=== PATIENT | female | born 1975 | race African-American/Black ===

== ENCOUNTER 2018-05-06 11:17 | Emergency (ER) | payer MEDICAID ==
[~2018-05-06] VITALS: Ht 167.6 cm; Wt 49.9 kg
[2018-05-06 11:20] VITALS: BP 111/56
--- NOTE | 2018-05-06 11:24 | NUR ---
1117 PT BIBA ALS TO BED 5
--- NOTE | 2018-05-06 11:28 | NUR ---
42/F BIBA FROM A STORE WITH C/O NEAR SYNCOPAL EPISODE WITH STERNAL PAIN RADIATING TO LEFT SHOULDERX TODAY. PT REPORT HAS HX OF HTN, DM BUT DOES NOT TAKE ANY MED. DENIES N/V/D; SKIN IS PINK/WARM/DRY; AAOX4 WITH EVEN AND STEADY GAIT; LUNGS CLEAR BL. PT DENIES ANY FEVER, SOB, OR COUGH AT THIS TIME; PATIENT STATES PAIN OF 8/10 AT THIS TIME. PATIENT POSITIONED FOR COMFORT; HOB ELEVATED; BEDRAILS UP X2; BED DOWN. ER MADE AWARE OF PT STATUS. Addendum: 05/06/18 at 1208 by [email or web address] PT REPORTED FELL X 1WK %& PAIN TO L KNEE.
[2018-05-06 11:46] LABS: HEMOGLOBIN 7.8 g/dL (12.0-16.0); MONOCYTES # (AUTO) 0.6 K/uL (0.8-1.0); WHITE BLOOD COUNT (AUTO) 7.2 K/uL (4.8-10.8)
[2018-05-06 12:10] LABS: ALBUMIN 3.5 g/dL (3.4-5.0); ANION GAP 9.7 (8-16); BASOPHILS % (AUTO) 0.6 % (0.0-2.0); CARBON DIOXIDE 24.2 mmol/L (21-32); CREATININE 0.9 mg/dL (0.6-1.3); EOSINOPHILS # (AUTO) 0.1 K/uL (0-0.4); EOSINOPHILS % (AUTO) 0.9 % (0.0-4.0); LYMPHOCYTES % (AUTO) 13.6 % (20.5-51.1); MEAN CORPUSCULAR HEMOGLOBIN 20 pg (27-31); MEAN CORPUSCULAR HGB CONC 31 g/dL (33-37); MEAN CORPUSCULAR VOLUME 65.7 fL (80-94); MONOCYTES % (AUTO) 7.8 % (1.7-9.3); NEUTROPHILS # (AUTO) 5.5 K/uL (1.8-7.7); NEUTROPHILS % (AUTO) 77.1 % (42.2-75.2); PLATELET COUNT (AUTO) 342 K/uL (140-450); POTASSIUM 3.9 mmol/L (3.5-5.1); RED CELL DISTRIBUTION WIDTH 19.6 % (11.6-13.7); TOTAL BILIRUBIN 0.9 mg/dL (0.0-1.0)
[2018-05-06 12:13] LABS: HEMATOCRIT 25.8 % (36-48)
[2018-05-06 14:12] VITALS: BP 111/56
--- NOTE | 2018-05-06 14:13 | NUR ---
Patient discharged with v/s stable. Written and verbal after care instructions given and explained. Patient alert, oriented and verbalized understanding of instructions. Ambulatory with steady gait. All questions addressed prior to discharge. ID band removed. Patient advised to follow up with PMD. Rx of MOTRIN AND ASPIRIN given. Patient educated on indication of medication including possible reaction and side effects. Opportunity to ask questions provided and answered.
== END 2018-05-06 14:13 | disposition home or self-care (01) ==
LOC: MED 11:17
DX: R07.89 Other chest pain (principal); R55 Syncope and collapse; R94.31 Abnormal electrocardiogram [ECG] [EKG]; E11.9 Type 2 diabetes mellitus without complications; I10 Essential (primary) hypertension
CPT/HCPCS: 36415; 71045; 80053; 81002; 81025; 84484; 85025; 93005; 99285; Q0092

== ENCOUNTER 2019-07-06 22:36 | Inpatient (IN) | payer MEDICAID ==
[~2019-07-06] VITALS: Ht 160 cm; Wt 45.4 kg
[2019-07-06 21:38] VITALS: BP 139/89
[2019-07-06 22:36] VITALS: BP 133/82
[2019-07-06 22:54] LABS: BASOPHILS % (AUTO) 0.5 % (0.0-2.0); EOSINOPHILS # (AUTO) 0.1 K/uL (0-0.4); EOSINOPHILS % (AUTO) 1.3 % (0.0-4.0); HEMATOCRIT 29.7 % (36-48); HEMOGLOBIN 9.2 g/dL (12.0-16.0); LYMPHOCYTES # (AUTO) 1.7 K/uL (2.5-16.5); LYMPHOCYTES % (AUTO) 17.7 % (20.5-51.1); MEAN CORPUSCULAR HEMOGLOBIN 22 pg (27-31); MEAN CORPUSCULAR HGB CONC 31 g/dL (33-37); MEAN CORPUSCULAR VOLUME 72.4 fL (80-94); MONOCYTES # (AUTO) 0.9 K/uL (0.8-1.0); MONOCYTES % (AUTO) 9.7 % (1.7-9.3); NEUTROPHILS # (AUTO) 6.7 K/uL (1.8-7.7); NEUTROPHILS % (AUTO) 70.8 % (42.2-75.2); PLATELET COUNT (AUTO) 382 K/uL (140-450); RED CELL DISTRIBUTION WIDTH 18.4 % (11.6-13.7); WHITE BLOOD COUNT (AUTO) 9.5 K/uL (4.8-10.8)
[2019-07-06 23:01] LABS: CARBON DIOXIDE 27.4 mmol/L (21-32); CREATININE 0.6 mg/dL (0.6-1.3); POTASSIUM 3.4 mmol/L (3.5-5.1)
[2019-07-06] MEDS ORDERED: ACETAMINOPHEN 325 MG TAB PO ONE (23:15)
--- NOTE | 2019-07-06 23:20 | NUR ---
FAMILY MEMEBER CALLED CONCERNED ABOUT PT. SPOKE TO PT UNCLE, ADRIEL GARCIA, REGARDING PT MEDICAL HX. PT UNCLE STATED THAT SHE CALLED HIS CONCERNED AND THAT SHE WAS IN LABOR WITH A BABY. PT HAS PSYCH HISTORY OF BIPOLAR AND SCHIZOPHRENIA AND HAS BEEN UNSTABLE. UNCLE STATED SHE "CRIES HERBERT, SHE IS HOMELESS AND LEAVES FOR MONTHS AND THEN CALLS WHEN SHE NEEDS MONEY". PT UNCLE DENIES SEEING PT FOR MONTHS AND IS UNSURE IF SHE IS . PER UNCLE, SHE HAS DONE THIS BEFORE AND HAS DELIVERED A BABY. CONTACT INFORMATION IS .
--- NOTE | 2019-07-06 23:24 | NUR ---
PER TELEPSYCH REQUEST INITIATED
--- NOTE | 2019-07-06 23:25 | NUR ---
PT BIBA C/O VAG BLEEDING X TODAY. PT STATED SHE WAS 9 MONTHS PREG SO SHE WAS TRASNFERRED TO L&D. L&D CALLED AND CONFIRMED SHE WAS NOT PREG AND WAS TRANSFERRED BACK TO ER. PT IS IN BED ONE AND SAID SHE IS STILL PREG FOR 9 MONTHS AND SAID THEY DID AN US AND STATED "I HAVE 6 BABIES IN THERE." SHE ALSO SAID "IM IN LABOR AND IM GETTING A C/S TONIGHT AT THIS HOSPITAL" SHE ALSO SAID "KARTIK TRAVEL TO DIFFERENT HOSPITAL AND STORES AND I AUDIT THEM." SHE SAYS SHE LIVES WITH 2 OF HER BEST FRIENDS IN [place]. SHE ALSO SAID THIS IS HER 5TH PREG AND HAS 4 CHILDREN LIVING. VSS. a &O X 2 (PERSON, PLACE). WHEN ASKED QUESTIONS SHE ANSWERS INAPPROPRIATELY. CLEAR SPEECH. NO DISTRESS NOTED. PMH: ASTHMA,DM,HTN, SCHIZO, BIPOLAR NKA.
--- NOTE | 2019-07-07 00:18 | NUR ---
TELEPSYCH SAID TO ADMIT PT. RAFAEL AWARE.
--- NOTE | 2019-07-07 00:51 | NUR ---
TRIED TO GET URINE SAMPLE FROM PT. PT IS UNABLE TO GET OUT OF BED D/T THE FACT THAT SHE IS "IN LABOR," TRIED OFFERING BEDPAN AND SAID SHE CANT GO AT THIS TIME. WILL LET ERMD KNOW.
--- NOTE | 2019-07-07 00:53 | NUR ---
RECEIVED FAX FROM [facility], FROM MD SOSA. PLAN OF CARE FROM PSYCH MD SOSA IS: PT IS LOW RISK FOR DANGER TO SELF AND OTHERS, HIGH RISK FOR GD, RECOMMEND PLACING 5150 INVOL PSYCH HOLD, MED CLEARANCE BY ERMD, AND INPATIENT PSYCH ADMISSION. REASON FOR COMMITMENT IS D/T GRAVELY DISABLED.
--- NOTE | 2019-07-07 01:04 | NUR ---
SPOKE TO INSIDE BARREL LATHE OPERATOR [phone] FROM [facility] TO ASK TO HAVE AN OFFICER TO [facility] FOR A 5150 HOLD.
--- NOTE | 2019-07-07 01:10 | NUR ---
[place] OFFICER VIN ARRIVED TO [facility] PT AT BEDSIDE TO PLACE A 5150 HOLD.
--- NOTE | 2019-07-07 01:18 | NUR ---
JACKIE,CHARGE NURSE AND MILLIKEN OFFICER VIN AT BEDSIDE EVAL PT.
--- NOTE | 2019-07-07 02:05 | NUR ---
urine collected by bedpan.
--- NOTE | 2019-07-07 02:10 | NUR ---
lab collected urine.
[2019-07-07 02:18] LABS: APPEARANCE,URINE SL CLOUDY (CLEAR); BILIRUBIN,URINE 1+ (NEGATIVE); BLOOD, URINE 3+ (NEGATIVE); COLOR,URINE YELLOW (YELLOW); LEUKOCYTE ESTERASE ,URINE NEGATIVE (NEGATIVE); NITRITE, URINE NEGATIVE (NEGATIVE); UGLUCOSE NEGATIVE (NEGATIVE)
[2019-07-07 02:24] LABS: BARBITURATE, URINE NEG. ng/ml (NEG <=200); BENZODIAZEPINE, URINE NEG. ng/mL (NEG <=200); CANNABINOID, URINE NEG. ng/mL (NEG <=50); COCAINE, URINE NEG. ng/mL (NEG <=300); OPIATE, URINE NEG. ng/mL (NEG <=2000); PHENCYCLIDINE SCREEN,URINE NEG. ng/mL (NEG <=25)
--- NOTE | 2019-07-07 02:27 | NUR ---
lab at bedside.
[2019-07-07 02:51] LABS: RBC,URINE 11-20 (MOD) /HPF (0-5); TRICHOMONAS,URINE Rare /HPF (None Seen)
--- NOTE | 2019-07-07 04:25 | NUR ---
SPOKE TO KRISTA [facility] REGARDING PT. PER , PT HAS SCABIES AND POSSIBLE BED BUGS. PER KRISTA, PT IS NOT MEDICALLY CLEARED AND WILL NEED TO BE ADMITTED IN [facility] TILL SHE IS MEDICALLY CLEARED. PER KRISTA, " NO FACILITY WILL TAKE PT WITH SCABIES OR BED BUGS".RAFAEL MADE AWARE.
[2019-07-07] MEDS ORDERED: ONDANSETRON 4 MG/2 ML VIAL IM/IVP PRN (05:15)
[2019-07-07] MEDS ORDERED: DOCUSATE SODIUM 100 MG GELCAP PO PRN (05:15)
[2019-07-07] MEDS ORDERED: HYDROcodone/APAP 7.5/325 MG 1 TAB PO PRN (05:15)
--- NOTE | 2019-07-07 05:23 | NUR ---
pt awake, calm laying in gurney. even chest rise and fall. no distress noted.
[2019-07-07] MEDS: NACL 0.9% 1,000 ML IV SCH ×2 (06:00→22:40)
[2019-07-07 07:03] LABS: CHOL/HDL RATIO 1.9 (1-4.5); FREE T4 (FREE THYROXINE) 1.1 ng/dL (0.76-1.46); MAGNESIUM 1.6 mg/dL (1.8-2.4); PHOSPHORUS 3.9 mg/dL (2.5-4.9); THYROID STIMULATING HORMONE 1.3 uIU/mL (0.34-3.74)
--- NOTE | 2019-07-07 07:20 | NUR ---
RECEIVED REPORT FROM ER NURSE ANGÉLICA. PATIENT IS FULL CODE, NKA. WAS INFORMED PATIENT IS ON CONTACT PRECAUTIONS FOR SCABIES AND BED BUGS. PT IS 5150 D/T GRAVELY DISABLED. AAOX2, UNABLE TO AMBULATE. TOX SCREEN NEGATIVE. PATIENT IS CURRENTLY AWAKE IN BED, NO RESP DISTRESS. PT IS HOMELESS. IV TO LEFT AC 20G, SKIN IS INTACT. WILL BEGIN ADMISSION CARE PLAN PAPERWORK.
--- NOTE | 2019-07-07 07:30 | NUR ---
Patient will be admitted to care of [facility]. Admited to M/S. Will go to room 114A. Belongings list completed. Report to ALETHA BOWEN.
--- NOTE | 2019-07-07 08:35 | NUR ---
[facility] still monitoring Pt progress. Pt still pending medical clearance
--- NOTE | 2019-07-07 08:51 | NUR ---
PATIENT HAS BEEN SCREENED AND CATEGORIZED HIGH NUTRITION RISK. PATIENT WILL BE SEEN WITHIN 1-2 DAYS OF ADMISSION. 07/07/19-07/08/[address]
--- NOTE | 2019-07-07 09:00 | NUR ---
PATIENT HAS BEEN CONNECTED TO IV, NS INFUSING AT 60ML/HR. ADMINISTERED MAG AND KDURR PO FOR LOW LEVELS, PATIENT TOLERATED WELL.
[2019-07-07] MEDS ORDERED: POTASSIUM CHLORIDE 10 MEQ TABER PO SCH (10:00)
[2019-07-07] MEDS ORDERED: PERMETHRIN 5% 60 GM TUBE TP SCH (10:00)
[2019-07-07] MEDS ORDERED: MAGNESIUM OXIDE 400 MG TAB PO SCH (10:00)
--- NOTE | 2019-07-07 12:34 | NUR ---
[facility] still aware of patient. Per MD notes 07/07/2019 08:47, patient unstable for discharge/transfer. Will continue to monitor documentation.
[2019-07-07] MEDS: metroNIDAZOLE 500 MG/NS PREMIX 100 ML IV SCH ×2 (13:00→21:47)
--- NOTE | 2019-07-07 13:15 | NUR ---
APPLIED PERMETHRIN CREAM TO ENTIRE BODY. WILL ENDORSE TO CUTTER OUT RN AND OUTBOUND SALES PROFESSIONAL FOR CONTINUITY OF CARE.
--- NOTE | 2019-07-07 13:48 | NUR ---
DC PLANNING 43 YRS OLD FEMALE PATIENT WAS ADMITTED FROM ER WITH A DX OF ENCEPHALOPATHY, ANEMIA . PT IS HOMELESS.HAS A HX OF SCHIZOAFFECTIVE DISORDER AND BIPOLAR. PT IS ON HOLD 5150 FOR GRAVELY DISABLE . PSYCH CONSULT WITH DR YAO , IVF, AND PEDRO PRADO STARTED DC PLAN SS FOR HOMELESSNESS.CM TO FOLLOW.
--- NOTE | 2019-07-07 14:00 | NUR ---
ADMINISTERED FLAGYL INFUSION IVPB. ADMINISTERED TYLENOL 650MG FOR GENERALIZED PAIN
[2019-07-07] MEDS: ACETAMINOPHEN 325 MG TAB PO PRN ×2 (14:14→21:28)
[2019-07-07 16:00] VITALS: BP 116/75
--- NOTE | 2019-07-07 16:51 | NUR ---
S/W bedside nurse Ludwin, patient not medically cleared yet. States in the am, patient should be cleared.
[2019-07-07] MEDS: FERROUS SULFATE 325 MG TABEC PO SCH (17:24)
[2019-07-07] MEDS: SODIUM FERRIC GLUCONATE 125 MG in NACL 0.9% 100 ML IV SCH (17:24)
--- NOTE | 2019-07-07 17:26 | NUR ---
ADMINISTERED FERROUS SULFATE PO AND FERRLECIT.
--- NOTE | 2019-07-07 19:10 | NUR ---
RECD. RESTING IN BED, AWAKE, A/OX2-3, WITH ILLUSION THAT SHE IS . RESPIRATION EVEN AND UNLABORED. IV OF NS AT 60 ML/HR INFUSING LEFT AC G20. USES BEDPAN. HEAD COVERED WITH HEAD PROTECTOR, SUSPECTED SCABIES, LICE. NO ITCHINESS NOTED. JUST RELAXED IN BED. PLAN OF CARE FOR THE SHIFT DISCUSSED. JUST NODS HEAD. DENIES PAIN 0/10.
[2019-07-07 20:00] VITALS: BP 113/78
--- NOTE | 2019-07-07 20:00 | NUR ---
Patient's Plan of Care was discussed and reviewed with PROFESSIONAL SERVICES SPECIALIST: VIJI CAMPBELL.
--- NOTE | 2019-07-07 20:45 | NUR ---
Change of shift report, will continue to monitor notes and plan of continuity of care
--- NOTE | 2019-07-07 22:00 | NUR ---
AWAKE, WATCHING TV.
--- NOTE | 2019-07-08 | NUR ---
SLEEPING COMFORTABLY IN BED.
--- NOTE | 2019-07-08 05:10 | NUR ---
Monitoring patient notes, aware patient is still not medically cleared till AM Addendum: 07/08/19 at 1151 by Kimmy Shields [place] [facility] [phone] NOTIFIED THAT PT IS MEDICALLY CLEAR FOR TRANSFER TO INPATIENT PSYCH FACILITY FAXED THE ORDER TO [phone]
--- NOTE | 2019-07-08 05:30 | NUR ---
ABLE TO SLEPT WELL. NO COMPLAINT OF PAIN AT THIS TIME 0.
[2019-07-08] MEDS: metroNIDAZOLE 500 MG/NS PREMIX 100 ML IV SCH ×3 (06:01→20:26)
--- NOTE | 2019-07-08 07:00 | NUR ---
REFUSED TO BE BATH. WANTS AFTER BREAKFAST.
--- NOTE | 2019-07-08 07:22 | NUR ---
RECEIVED BEDSIDE REPORT FROM VICE PRESIDENT COMPLIANCE NURSE, PT IS AWAKE, COOPERATIVE, BUT SPEECH IS NOTED TO BE SOMEWHAT SLOW. SKIN INTACT, ON ROOM AIR. PT IS ON CONTACT ISOLATION FOR POSSIBLE SCABIES/LICE. IV SITE L AC 20 G, INFUSING NS 60 ML/HR. CALL LIGHT IS WITHIN REACH. WILL CONTINUE TO MONITOR.
--- NOTE | 2019-07-08 07:30 | NUR ---
CONDITION REMAIN STABLE. ENDORSED TO SHIFT NURSE FOR CONTINUITY OF CARE.
[2019-07-08 07:57] LABS: BASOPHILS % (AUTO) 0.6 % (0.0-2.0); EOSINOPHILS # (AUTO) 0.2 K/uL (0-0.4); EOSINOPHILS % (AUTO) 2.6 % (0.0-4.0); HEMOGLOBIN 8.5 g/dL (12.0-16.0); LYMPHOCYTES # (AUTO) 0.9 K/uL (2.5-16.5); LYMPHOCYTES % (AUTO) 12.3 % (20.5-51.1); MEAN CORPUSCULAR HEMOGLOBIN 23 pg (27-31); MEAN CORPUSCULAR HGB CONC 31 g/dL (33-37); MEAN CORPUSCULAR VOLUME 73.1 fL (80-94); MONOCYTES # (AUTO) 0.4 K/uL (0.8-1.0); NEUTROPHILS # (AUTO) 5.6 K/uL (1.8-7.7); NEUTROPHILS % (AUTO) 79.5 % (42.2-75.2); PLATELET COUNT (AUTO) 359 K/uL (140-450); RED CELL DISTRIBUTION WIDTH 18.6 % (11.6-13.7); WHITE BLOOD COUNT (AUTO) 7.1 K/uL (4.8-10.8)
[2019-07-08 08:00] VITALS: BP 120/70
[2019-07-08 08:08] LABS: MAGNESIUM 1.9 mg/dL (1.8-2.4); PHOSPHORUS 3.1 mg/dL (2.5-4.9)
[2019-07-08 08:10] LABS: ANION GAP 14.2 (8-16); CARBON DIOXIDE 24.5 mmol/L (21-32); CREATININE 0.6 mg/dL (0.6-1.3); POTASSIUM 3.7 mmol/L (3.5-5.1)
[2019-07-08 08:31] LABS: T4 (THYROXINE) 7.3 ug/dL (4.5-12.0)
--- NOTE | 2019-07-08 09:02 | NUR ---
TALKED TO ZOFIA OCHOA ABOUT GIVING STAND-BY ASSISTANCE TO PT WHILE SHE TAKES A SHOWER, LABORER ROAD SAID THAT PT TOLD HER THAT SHE FEELS LIKE SHE IS UNABLE TO WALK/STAND BECAUSE OF HER "BROKEN LEG", AND THEREFORE UNABLE TO TAKE A SHOWER. ZOFIA STATES SHE FEELS UNSAFE TO PROVIDE STAND-BY ASSISTANCE TO PT IN CASE OF A FALL.
--- NOTE | 2019-07-08 10:02 | NUR ---
PATIENT HAS BEEN SCREENED AND CATEGORIZED MODERATE NUTRITION RISK. PATIENT WILL BE SEEN WITHIN 3-5 DAYS OF ADMISSION. 07/10/19 07/12/[address]
[2019-07-08] MEDS: FERROUS SULFATE 325 MG TABEC PO SCH ×2 (10:17→16:45)
--- NOTE | 2019-07-08 10:19 | NUR ---
SCHEDULED IRON ADMINISTERED, PT TOLERATED WELL. PT KEEPS STATING THAT SHE IS AND THAT SHE HAS A "10 O'CLOCK APPOINTMENT FOR A ". I REMINDED PT THAT SEVERAL TESTS WERE DONE THAT CONFIRMED SHE IS NOT . PT STILL INSISTS THAT SHE IS 9 MONTHS AND IS GOING INTO LABOR. WILL CONTINUE TO MONITOR.
[2019-07-08] MEDS ORDERED: risperiDONE 1 MG TAB PO SCH ×2 (11:38→21:00)
--- NOTE | 2019-07-08 11:48 | NUR ---
PT WAS ENDORSED TO SAROJ FOR CONTINUITY OF CARE.
--- NOTE | 2019-07-08 11:49 | NUR ---
RECEIVED PATIENT FROM ALETHA VYAS. PATIENT IS SITTING IN BED AT THIS TIME. NO DISTRESS NOTED. RESPIRATIONS EVEN AND UNLABORED, ON ROOM AIR. PATIENT STATED SHE IS HAVING CONTRACTIONS AND THAT SHE IS 10 CM DILATED. PATIENT IS NOT . SKIN INTACT. IV ON LEFT AC 20G RUNNING 0.9% AT 60 ML/HER. IV PATENT AND INTACT. PATENT IS CONTACT ISOLATION FOR POSSIBLE SCABIES AND LICE. BED IN LOW POSITION. CALL LIGHT WITHIN REACH.
--- NOTE | 2019-07-08 12:17 | NUR ---
Received call from [facility] stating patient is medically cleared. Waiting for MD notes stating patient is medically cleared before seeking placement
--- NOTE | 2019-07-08 12:21 | NUR ---
GIVEN FLAGYL VIA IVPB AND RISPERIDONE PO. EXPLAINED TO PATIENT INDICATIONS AND SIDE EFFECTS. PATIENT TOLERATED WELL. WILL CONTINUE TO MONITOR. BED IN LOW POSITION. CALL LIGHT WITHIN REACH.
--- NOTE | 2019-07-08 13:20 | NUR ---
PATIENT IS RESTING AT THIS TIME. DENIES PAIN. NO DISTRESS NOTED. WILL CONTINUE TO MONITOR. BED IN LOW POSITION. CALL LIGHT WITHIN REACH.
--- NOTE | 2019-07-08 13:53 | NUR ---
Called the following facilities: [facility] for [facility] Sonido packet fax for transfer center [facility] s/w Walter packet fax for review [facility] s/w Clara packet fax for review
--- NOTE | 2019-07-08 14:41 | NUR ---
Green Marketing Analyst Note: SW attempted to complete assessment with patient. Patient refused to complete screening. SW will follow up as needed.
--- NOTE | 2019-07-08 15:00 | NUR ---
RECEIVED A CALL FROM MT FROM [facility] AND SAID THAT PATIENT CANNOT BE ADMITTED IF SCABIES IS NOT R/O YET.
--- NOTE | 2019-07-08 15:05 | NUR ---
SPOKE TO DR. HODGE REGARDING PATIENT SCABIES STATUS. DR. HODGE SAID THAT PATIENT HAS BEEN TREATED FOR SCABIES AND PATIENT HAS NO LESIONS PRESENT. CONTACT ISOLATION IS STILL IN PLACE.
[2019-07-08] MEDS: NACL 0.9% 1,000 ML IV SCH (15:20)
--- NOTE | 2019-07-08 15:43 | NUR ---
07/08/19 RD INITIAL ASSESSMENT COMPLETED PLEASE REFER TO NUTRITION ASSESSMENT UNDER CARE ACTIVITY FOR ESTIMATED NUTRITIONAL NEEDS. 1. CONTINUE REGULAR DIET TOLERATED 2. RECOMMEND ENSURE BID 3. RECOMMEND VITAMIN C 500 MG BID 4. EDUCATION ON IRON INTAKE WAS PROVIDED 5. RD TO FOLLOW-UP 3-5 DAYS, MODERATE RISK SHANNEN MEDINA RD REVIEWED BY MOO MCDERMOTT RD
--- NOTE | 2019-07-08 15:57 | NUR ---
Left vm with [facility] to call back Call Center
[2019-07-08 16:00] VITALS: BP 114/71
--- NOTE | 2019-07-08 16:06 | NUR ---
SPOKE TO ESPINOZA FROM [facility] ABOUT PATIENT BEING CLEARED OF SCABIES. ESPINOZA ASKED FOR THE DOCTOR TO DOCUMENT THAT PATIENT HAS BEEN CLEARED FOR SCABIES. DOCTOR JASON IS AWARE.
[2019-07-08] MEDS: SODIUM FERRIC GLUCONATE 125 MG in NACL 0.9% 100 ML IV SCH (16:36)
--- NOTE | 2019-07-08 17:58 | NUR ---
Fax documentation to [facility] of medical clearance for scabies. S/W Dao
--- NOTE | 2019-07-08 18:37 | NUR ---
PATIENT IS RESTING AT THIS TIME, ON HER PHONE. PATIENT DENIES ANY PAIN. WILL CONTINUE TO MONITOR.
--- NOTE | 2019-07-08 19:20 | NUR ---
ENDORSED PATIENT TO EMERY WHEEL MOLDER NURSE, AZAM. PATIENT IS IN STABLE CONDITION.
--- NOTE | 2019-07-08 19:21 | NUR ---
REPORT RECEIVED FROM AM NURSE AT BEDSIDE. PT IN STABLE CONDITION. AAOX2-3. INTRODUCED SELF TO PT. BOARD UPDATED. NO COMPLAINTS OF PAIN. NO SOB. AFEBRILE. PT IS AMBULATORY. PT IS SLIGHTLY CONFUSED. IV SITE L AC 20G RUNNING NS@60ML/HR PATENT AND INTACT. SKIN WARM, DRY, AND INTACT WITH NO OPEN WOUNDS. PT HAS POSSIBLE SCABIES OR BEDBUG BITES. BED LOCKED IN LOW POSITION. CALL LARSEN WITHIN REACH. SAFETY PRECAUTION IN PLACE. ALL NEEDS MET AT THIS TIME.
--- NOTE | 2019-07-08 20:00 | NUR ---
CASE MANAGEMENT FROM [facility] CALLED TO ACCEPT PT FOR IP PSYCH. ACCEPTING DOCTOR WILL BE DR. WALDRON. ONCE TRANSPORT IS FIGURED OUT WE WILL CALL BACK WITH A TIME OF NURSES' ASSOCIATION COUNSELOR AND THEY WILL PROVIDE A BED.
--- NOTE | 2019-07-08 20:26 | NUR ---
RISPERDAL GIVEN PO. FLAGYL HUNG AND RUNNING. PT TOLERATING WELL.
--- NOTE | 2019-07-08 21:30 | NUR ---
SPOKE TO [facility]. SCHEDULED CHARTER BOAT CAPTAIN WILL BE [id number]. [facility] MADE AWARE.
[2019-07-08] MEDS ORDERED: RIS1 PO (21:54)
[2019-07-08] MEDS ORDERED: LACT10CA1 PO (21:54)
[2019-07-08] MEDS ORDERED: METR500T1 PO (21:54)
[2019-07-08] MEDS ORDERED: ASCO500T45 PO (21:54)
[2019-07-08] MEDS ORDERED: FER325 PO (21:54)
[2019-07-08 22:00] VITALS: BP 125/82
--- NOTE | 2019-07-08 22:40 | NUR ---
JONG PUTTING HER IN GURNEY AND TRANSFERRING PATIENT TO [facility].
--- NOTE | 2019-07-08 22:55 | NUR ---
CALLED [facility] AND SPOKE TO SHIRA. INFORMATION GIVEN ABOUT PT CONTACT FOR POSSIBILITY OF SCABIES, BEDBUGS, AND LICE. PT ALSO USES A CANE AND IS UNSTEADY WHILE WALKING. PT WILL BE ACCEPTED. BEING PUT ON GURNEY.
--- NOTE | 2019-07-08 23:00 | NUR ---
PT D/C TO [facility] THROUGH [facility].
[2019-07-09 08:09] LABS: CHLAMYDIA TRACHOMATIS AMP DNA Negative (Negative)
== END 2019-07-08 23:00 | DRG 663 ==
LOC: EDSTATUS 22:36 → MED 22:36 → MTU 07-07 05:15
PROVIDERS: ADMIT General Practice; ATTEND General Practice
DX: D50.9 Iron deficiency anemia, unspecified (principal); E46 Unspecified protein-calorie malnutrition; E83.42 Hypomagnesemia; F22 Delusional disorders; F25.9 Schizoaffective disorder, unspecified; E11.9 Type 2 diabetes mellitus without complications; A59.9 Trichomoniasis, unspecified; B86 Scabies; E87.6 Hypokalemia; I10 Essential (primary) hypertension; F31.9 Bipolar disorder, unspecified; Z59.0 Homelessness; Z68.1 Body mass index [BMI] 19.9 or less, adult
CPT/HCPCS: 36415; 76805; 76856; 80048; 80305; 81001; 82150; 83036; 83540; 83690; 83735; 83880; 84100; 84436; 84439; 84443; 84479; 84484; 84702; 85025; 85610; 85730; 86592; 86702; 87081; 87086; 87491; 93005; 99285; G0482; J2916; J3490; J7030; Q0092